=== PATIENT | male | born 1960 | race Caucasian/White ===

== ENCOUNTER 2017-04-02 09:01 | Emergency (ER) | payer OTHER | END 2017-04-02 10:30 | disposition home or self-care (01) | LOC: FER 09:01 | DX: S39.012A Strain of muscle, fascia and tendon of lower back, initial encounter (principal); I10 Essential (primary) hypertension; F17.200 Nicotine dependence, unspecified, uncomplicated; Z79.82 Long term (current) use of aspirin; Z87.442 Personal history of urinary calculi; Z88.5 Allergy status to narcotic agent; Z91.048 Other nonmedicinal substance allergy status; X50.0XXA Overexertion from strenuous movement or load, initial encounter | CPT/HCPCS: 72100; J1100; J1885 ==

== ENCOUNTER 2021-01-11 13:23 | Emergency (ER) | payer OTHER ==
[~2021-01-11 13:23] MED LIST: ASPIRIN EC81 MG PO; LIPITOR40 MG PO; NORVASC5 MG PO; PRILOSEC OTC20 MG PO; PROZAC20 MG PO; TOPROL XL25 MG PO; VENTOLIN HFA IN18 GM INH
[2021-01-11 14:25] LABS: BASOPHIL 0.5 % (0-2); HCT 46.1 % (42.0-52.0); HGB 15.9 g/dl (13.2-18.0); LYMPHOCYTE 31.6 % (15-48); MCH 32.4 pg (25.0-31.0); MCHC 34.5 g/dL (32.0-36.0); MCV 93.9 fL (78.0-100.0); MONOCYTE 7.1 % (0-12); MPV 9.5 fL (6.0-9.5); NEUTROPHIL 58.3 % (41-80); NRBC 0; PLT 243 K/uL (150-400); RBC 4.91 M/uL (4.70-6.00); RDW 14.5 % (11.5-14.0); WBC 7.5 K/uL (4.0-10.5)
[2021-01-11 14:36] LABS: ALBUMIN 3.5 g/dL (3.4-5.0); BILIRUBIN - TOTAL 0.4 mg/dL (0.2-1.0); BUN/CREAT RATIO (CALC) 16.7 RATIO; CREATININE 0.9 mg/dL (0.67-1.17); GLOBULIN (CALCULATION) 2.7 g/dL; MAGNESIUM 1.8 mg/dL (1.8-2.4); POTASSIUM 4.2 mmol/L (3.5-5.1); TOTAL PROTEIN 6.2 g/dL (6.4-8.2)
[2021-01-11 17:07] LABS: BILIRUBIN NEGATIVE (NEGATIVE); BLOOD NEGATIVE Ery/uL (NEGATIVE); CLARITY CLEAR (CLEAR); COLOR YELLOW (YELLOW); GLUCOSE (U) NORMAL (NORMAL); LEUKOCYTES NEGATIVE Leu/uL (NEGATIVE); NITRITE NEGATIVE (NEGATIVE); PROTEIN NEGATIVE (NEGATIVE); SPECIFIC GRAVITY 1.025 (1.001-1.030); UROBILINOGEN 0.2 mg/dL (0.2-1.0)
== END 2021-01-11 17:23 | disposition home or self-care (01) ==
LOC: FER 13:23
PROVIDERS: Nurse Practitioner Family
DX: R07.89 Other chest pain (principal); J43.9 Emphysema, unspecified; Z95.5 Presence of coronary angioplasty implant and graft
CPT/HCPCS: 36415; 71045; 80053; 81003; 83735; 84484; 85025; 93005

== ENCOUNTER → 2021-01-15 | Day surgery (SDC) | payer OTHER ==
[~2021-01-15] VITALS: Ht 167.6 cm; Wt 81.8 kg
== END | disposition home or self-care (01) ==
LOC: FAS 10:59
DX: Z12.11 Encounter for screening for malignant neoplasm of colon (principal); D12.6 Benign neoplasm of colon, unspecified; K21.9 Gastro-esophageal reflux disease without esophagitis; K29.80 Duodenitis without bleeding; K29.60 Other gastritis without bleeding; K44.9 Diaphragmatic hernia without obstruction or gangrene; K31.89 Other diseases of stomach and duodenum; K57.30 Diverticulosis of large intestine without perforation or abscess without bleeding; K59.09 Other constipation; F17.210 Nicotine dependence, cigarettes, uncomplicated; F32.9 Major depressive disorder, single episode, unspecified; I25.10 Atherosclerotic heart disease of native coronary artery without angina pectoris; I11.0 Hypertensive heart disease with heart failure; I50.9 Heart failure, unspecified; F41.9 Anxiety disorder, unspecified; E78.5 Hyperlipidemia, unspecified; J44.9 Chronic obstructive pulmonary disease, unspecified; G47.30 Sleep apnea, unspecified; Z88.5 Allergy status to narcotic agent; Z80.0 Family history of malignant neoplasm of digestive organs; Z79.899 Other long term (current) drug therapy; Z20.822 Contact with and (suspected) exposure to COVID-19
CPT/HCPCS: J2250; J2704; J7120

== ENCOUNTER 2022-03-09 05:28 | Emergency (ER) | payer OTHER ==
[2022-03-09 06:19] LABS: BASOPHIL 0.6 % (0-2); EOSINOPHIL 1.8 % (0-5); HCT 42.2 % (42.0-52.0); HGB 14.5 g/dl (13.2-18.0); LYMPHOCYTE 23.5 % (15-48); MCH 32.1 pg (25.0-31.0); MCHC 34.4 g/dL (32.0-36.0); MCV 93.4 fL (78.0-100.0); MONOCYTE 7.5 % (0-12); NEUTROPHIL 65.7 % (41-80); NRBC 0; PLT 391 K/uL (150-400); RBC 4.52 M/uL (4.70-6.00); RDW 14.1 % (11.5-14.0); WBC 10.8 K/uL (4.0-10.5)
[2022-03-09 06:37] LABS: ALBUMIN 3.2 g/dL (3.4-5.0); BILIRUBIN - TOTAL 0.3 mg/dL (0.2-1.0); BUN/CREAT RATIO (CALC) 14.1 RATIO; CREATININE 1.35 mg/dL (0.67-1.17); GLOBULIN (CALCULATION) 3.5 g/dL; POTASSIUM 3.7 mmol/L (3.5-5.1); TOTAL PROTEIN 6.7 g/dL (6.4-8.2)
[2022-03-09 06:40] LABS: LACTIC ACID 1.5 mmol/L (0.4-1.9)
[2022-03-09 07:27] LABS: CORONAVIRUS 2019 SARS-COV-2 NEGATIVE (NEGATIVE); INFLUENZA A NAA NEGATIVE (NEGATIVE)
[2022-03-09] MEDS ORDERED: MEDROL 4MG DOSEP4 MG PO (08:21)
[2022-03-09] MEDS ORDERED: VIBRAMYCIN100 MG PO (08:21)
[2022-03-09] MEDS ORDERED: TESSALON PERLE100 MG PO (08:21)
[2022-03-09] MEDS ORDERED: VENTOLIN HFA18 GM INH (08:21)
== END 2022-03-09 08:40 | disposition home or self-care (01) ==
LOC: FER 05:28
PROVIDERS: Emergency Medicine
DX: J22 Unspecified acute lower respiratory infection (principal); I10 Essential (primary) hypertension; I25.10 Atherosclerotic heart disease of native coronary artery without angina pectoris; F17.200 Nicotine dependence, unspecified, uncomplicated; Z20.822 Contact with and (suspected) exposure to COVID-19; Z79.899 Other long term (current) drug therapy
CPT/HCPCS: 36415; 71045; 80053; 83605; 84145; 84484; 85025; 87040; 93005; J0692; J7030; U0002